=== PATIENT | female | born 1975 | race Caucasian/White ===

== ENCOUNTER 2016-12-04 21:24 | Emergency (ER) | payer OTHER ==
--- NOTE | 2016-12-04 21:41 | ER Document Report ---
ED Medical Screen (RME) - General Chief Complaint: Low Back Pain Stated Complaint: LEG PAIN Mode of Arrival: Ambulatory Information source: Patient Notes: She presents to the emergency department with complaints of sciatic pain. Reports she's had it for years. Reports she usually takes ibuprofen and Ultram for the pain. She cannot get in to see her primary care provider. She also reports that some increased numbness in her leg. TRAVEL OUTSIDE OF THE [place] IN LAST 30 DAYS: No - Related Data Allergies/Adverse Reactions: Penicillins Allergy (Verified 08/22/15 22:53) Anaphylaxis Past Medical History Endocrine Medical History: Reports: Hx Diabetes Mellitus Type 2 Past Surgical History: Reports: Hx Hysterectomy, Hx Orthopedic Surgery - Carpal tunnel - Immunizations Hx Diphtheria, Pertussis, Tetanus Vaccination: Yes
--- NOTE | 2016-12-04 22:32 | ER Document Report ---
HPI - HPI Patient complains to provider of: sciatica Onset: Last week Onset/Duration: Persistent Quality of pain: Achy Severity: Severe Pain Level: 4 Context: Patient presents to the emergency department with complaints of right-sided low back pain. Reports history of chronic back pain with sciatica. She is currently prescribed Ultram and Motrin for the pain. She reports recently having increased back pain unable to lay on the right side and increased numbness going down her right leg. She denies other symptoms such as fever vomiting diarrhea. She denies urinary or bowel incontinence or retention. She reports last bowel movement was this morning and was normal. She denies trauma. She denies past medical history of IV drug use. She reports recent weight loss approximately 50 pounds. She reports she has changed her diet and is concentrating on losing weight. Patient does have a history of ovarian cancer approximately 10 years ago and had a checkup 2 years ago with no further cancer noted. Associated Symptoms: None Exacerbated by: Supine Relieved by: Denies Similar symptoms previously: Yes Recently seen / treated by doctor: Yes - REPRODUCTIVE LMP: na Reproductive: DENIES: : - DERM Skin Color: Normal <KEY HANSON - Last Filed: 12/04/16 23:23> Past Medical History - General Information source: Patient Last Menstrual Period: hyst - Social History Smoking Status: Current Every Day Smoker Cigarette use (# per day): Yes Chew tobacco use (# tins/day): No Frequency of alcohol use: Rare Drug Abuse: None Occupation: commissary Lives with: Friend Family History: Reviewed & Not Pertinent Patient has suicidal ideation: No Patient has homicidal ideation: No Renal/ Medical History: Denies: Hx Peritoneal Dialysis Malignancy Medical History: Reports: Hx Ovarian Cancer Past Surgical History: Reports: Hx Hysterectomy, Hx Orthopedic Surgery - Carpal tunnel - Immunizations Hx Diphtheria, Pertussis, Tetanus Vaccination: Yes <KEY HANSON - Last Filed: 12/04/16 23:23> Vertical Provider Document - CONSTITUTIONAL Agree With Documented VS: Yes Exam Limitations: No Limitations General Appearance: WD/WN, Mild Distress - winces when right buttocks palpated - INFECTION CONTROL TRAVEL OUTSIDE OF THE [place] IN LAST 30 DAYS: No - HEENT HEENT: Atraumatic, Normocephalic - NECK Neck: Normal Inspection, Supple. negative: Lymphadenopathy-Left, Lymphadenopathy-Right - RESPIRATORY Respiratory: Breath Sounds Normal, No Respiratory Distress O2 Sat by Pulse Oximetry: 100 - CARDIOVASCULAR Cardiovascular: Regular Rate, Regular Rhythm - GI/ABDOMEN Gastrointestinal: Abdomen Soft, Abdomen Non-Tender - BACK Back: Normal Inspection - No obvious deformity no erythema, warmth, swelling. Good distal movement and sensation. Good reflexes. No weakness noted. Patient is tender to palpation on the right paraspinal with pain radiating down her right buttocks and around her right leg. - MUSCULOSKELETAL/EXTREMETIES Musculoskeletal/Extremeties: MOLINA RUSSO - NEURO Level of Consciousness: Awake, Alert, Appropriate Motor/Sensory: No Motor Deficit - DERM Integumentary: Warm, Dry Adult Front & Back Diagram: 1 - reports pain 2 - radiates down the right buttocks to her right leg, wraps around the leg <KEY HANSON - Last Filed: 12/04/16 23:23> Course - Vital Signs Vital signs: Temp Pulse Resp BP Pulse Ox 98.1 F 95 16 151/92 H 100 12/04/16 21:40 12/04/16 21:40 12/04/16 21:40 12/04/16 21:40 12/04/16 23:04 <ELIO JOHNSON - Last Filed: 12/04/16 23:04> - Re-evaluation Re-evalutation: 12/04/16 23:05 She instructed on all medications. Patient reports she has the next 2 days off so she can rest. Patient was also instructed on red flags of back pain. She was instructed to follow up with Dr. Anderson as scheduled December 13. - Vital Signs Vital signs: Temp Pulse Resp BP Pulse Ox 98.1 F 95 16 151/92 H 100 12/04/16 21:40 12/04/16 21:40 12/04/16 21:40 12/04/16 21:40 12/04/16 21:40 <KEY HANSON - Last Filed: 12/04/16 23:23> Discharge <ELIO JOHNSON - Last Filed: 12/04/16 23:04> <KEY HANSON - Last Filed: 12/04/16 23:23> - Discharge Clinical Impression: Elevated blood pressure reading, Chronic back pain Sciatica Qualifiers: Laterality: right Qualified Code(s): M54.31 - Sciatica, right side Condition: Stable Disposition: HOME, SELF-CARE Instructions: Oral Narcotic Medication ([facility]), Steroid Medication, Toradol Injection ([facility]), Sciatica ([facility]) Additional Instructions: *You have been evaluated for back pain, sciatica *Take medication as prescribed *Rest *Follow up with Dr Anderson December 13 as scheduled *Return to ED for worsening condition, changes, needs Prescriptions: Hydrocodone/Acetaminophen [Siren 5-325 mg Tablet] 1 tab PO QID #15 tablet Prednisone [Deltasone 10 mg Tablet] 10 mg PO ASDIR PRN #15 tablet PRN Reason: Forms: Elevated Blood Pressure Referrals: MICHELINE GARSIA MD [Primary Care Provider] - Follow up as needed
[2016-12-04] MEDS ORDERED: KETOROLAC TROMETHAMINE 60 MG/2 ML SDV IM ONE (22:44)
[2016-12-04] MEDS ORDERED: PREDNISONE 20 MG TABLET PO ONE (22:44)
[2016-12-04] MEDS ORDERED: HYDROCODONE/ACETAMINOPHEN 5-325 MG 6 TAB/DSPK PO PRN (22:44)
[2016-12-05] VITALS: BP 146/88
== END 2016-12-04 23:02 | disposition home or self-care (01) ==
LOC: ER 21:24
DX: G89.29 Other chronic pain (principal); M54.41 Lumbago with sciatica, right side; R03.0 Elevated blood-pressure reading, without diagnosis of hypertension; F17.210 Nicotine dependence, cigarettes, uncomplicated; Z79.891 Long term (current) use of opiate analgesic; Z79.1 Long term (current) use of non-steroidal anti-inflammatories (NSAID); Z85.43 Personal history of malignant neoplasm of ovary
CPT/HCPCS: 99283; 96372; J1885; J7512

== ENCOUNTER → 2017-01-16 | Outpatient (CLI) | payer OTHER ==
--- NOTE | 2017-01-16 11:07 | RADIOLOGY REPORT (SQ) ---
EXAM DESCRIPTION: MRI LUMBAR SPINE WITHOUT COMPLETED DATE/TIME: 01/16/2017 10:52 am REASON FOR STUDY: RADICULOPATHY, SITE UNSPECIFIED M54.10 RADICULOPATHY, SITE UNSPECIFIED COMPARISON: None. TECHNIQUE: Sagittal and Axial imaging includes T1, T2, STIR and gradient echo sequences. Coronal T2/ HASTE imaging. LIMITATIONS: None. FINDINGS: VISUALIZED UPPER ABDOMEN: Limited evaluation. No acute or suspicious findings suggested. SEGMENTATION: No transitional anatomy. The lowest well-developed disc space is labeled L5-S1. ALIGNMENT: Anatomic. VERTEBRAE: Intact. BONE MARROW: Normal. No marrow replacement or reactive changes. DISC SIGNAL: Normal. No significant abnormal signal or loss of height. POSTERIOR ELEMENTS: Generally intact. No pars defect evident. HARDWARE: None in the spine. CORD AND CONUS: Normal in size and signal intensity. Conus at the appropriate level. SOFT TISSUES: No aortic aneurysm seen. No bulky retroperitoneal adenopathy or mass. No paraspinal mas s or fluid. L1-L2: No significant disc bulge. Mild facet arthropathy. No significant spinal stenosis or exit fo raminal stenosis. L2-L3: No significant disc bulge. Mild -moderate facet arthropathy. No significant spinal stenosis or exit foraminal stenosis. L3-L4: No significant disc bulge. Mild -moderate facet arthropathy. No significant spinal stenosis or exit foraminal stenosis. L4-L5: Central disc protrusion, asymmetric to the right side, with right lateral recess stenosis and impingement of the associated nerve roots. Moderate facet arthropathy. No significant exit foramina l stenosis. L5-S1: No significant disc bulge. Mild facet arthropathy. No significant spinal stenosis or exit fo raminal stenosis. LOWER THORACIC: Incompletely imaged. No stenosis seen. SACRUM: Visualized upper sacrum intact. OTHER: No other significant findings. IMPRESSION: 1. CENTRAL DISC PROTRUSION AT L4-L5 WHICH RESULTS IN RIGHT LATERAL RECESS STENOSIS AND IMPINGEMENT OF THE ASSOCIATED NERVE ROOTS. 2. FACET ARTHROPATHY IN THE REMAINDER OF THE LUMBAR SPINE WITH NO SIGNIFICANT DISC DISEASE. NO STENO SIS OR IMPINGEMENT ELSEWHERE. TECHNICAL DOCUMENTATION: JOB ID: [id number] Dr[address] Tariff- All Rights Reserved
== END ==
LOC: RAD 09:32
PROVIDERS: ATTEND Family Medicine
DX: M54.16 Radiculopathy, lumbar region (principal)
CPT/HCPCS: 72148

== ENCOUNTER 2017-01-28 23:53 | Emergency (ER) | payer OTHER ==
--- NOTE | 2017-01-29 04:20 | ER Document Report ---
HPI - HPI Patient complains to provider of: worse sciatica on the right Onset: Other - months Onset/Duration: Persistent, Worse Pain Level: 5 Context: -year-old female complaining of right low back pain which radiates into her right posterior leg. She was diagnosed with an L4-L5 herniated disc and sciatica is being treated by the her doctor. no saddle anesthesia. No fever or chills. No IV drug use.. After lifting at work. She has 2 jobs that require lifting. Associated Symptoms: None Exacerbated by: Sitting - REPRODUCTIVE LMP: hysterectomy Reproductive: DENIES: : - DERM Skin Color: Normal Past Medical History - General Information source: Patient - Social History Smoking Status: Unknown if Ever Smoked Frequency of alcohol use: None Drug Abuse: None Family History: Reviewed & Not Pertinent Endocrine Medical History: Reports: Hx Diabetes Mellitus Type 2 Renal/ Medical History: Denies: Hx Peritoneal Dialysis Malignancy Medical History: Reports: Hx Ovarian Cancer GI Medical History: Reports: Hx Gastroesophageal Reflux Disease Musculoskeltal Medical History: Reports Other - Herniated L4-L5 disc and sciatica on the right Past Surgical History: Reports: Hx Hysterectomy, Hx Orthopedic Surgery - Carpal tunnel - Immunizations Hx Diphtheria, Pertussis, Tetanus Vaccination: Yes Vertical Provider Document - CONSTITUTIONAL Agree With Documented VS: Yes Exam Limitations: No Limitations General Appearance: No Apparent Distress Notes: Moves easily to a seated and standing and walking position - INFECTION CONTROL TRAVEL OUTSIDE OF THE [place] IN LAST 30 DAYS: No - HEENT HEENT: Normocephalic - NECK Neck: Supple - RESPIRATORY Respiratory: Breath Sounds Normal, No Respiratory Distress O2 Sat by Pulse Oximetry: 100 - CARDIOVASCULAR Cardiovascular: Regular Rate, Regular Rhythm - GI/ABDOMEN Gastrointestinal: Abdomen Soft, Abdomen Non-Tender - BACK Back: Normal Inspection - tender right SI joint area into right mid buttocks - MUSCULOSKELETAL/EXTREMETIES Musculoskeletal/Extremeties: MAEW, FROM - NEURO Level of Consciousness: Awake, Alert Motor/Sensory: No Motor Deficit, No Sensory Deficit Deep Tendon Reflexes: 2+ - Bilateral ankle and patellar - DERM Integumentary: Warm, Dry, No Rash Course - Vital Signs Vital signs: Temp Pulse Resp BP Pulse Ox 97.6 F 69 20 148/89 H 100 01/29/17 00:46 01/29/17 00:46 01/29/17 00:46 01/29/17 00:46 01/29/17 00:46 Discharge - Discharge Clinical Impression: exacerbation right sciatica Condition: Good Disposition: HOME, SELF-CARE Instructions: Low Back Pain ([facility]), Sciatica ([facility]), Oral Narcotic Medication ( [facility]) Additional Instructions: see your doctor on monday do NOT mix the tramadol and the hydrocodone after the hydrocodone dispense #6 is gone tomorrow you can restart the tramadol to er if worse Forms: Return to Work Referrals: MICHELINE GARSIA MD [Primary Care Provider] - Follow up as needed
[2017-01-29] MEDS ORDERED: HYDROCODONE/ACETAMINOPHEN 5-325 MG 6 TAB/DSPK PO PRN (04:28)
[2017-01-29 04:37] VITALS: BP 132/78
== END 2017-01-29 04:36 | disposition home or self-care (01) ==
LOC: ER 23:53
DX: M54.5 Low back pain (principal); M79.604 Pain in right leg; M54.31 Sciatica, right side
CPT/HCPCS: 99283

== ENCOUNTER 2017-04-27 01:03 | Emergency (ER) | payer OTHER ==
[2017-04-27] MEDS ORDERED: NAPROXEN 250 MG TABLET PO ONE (02:18)
[2017-04-27] MEDS ORDERED: LIDOCAINE 5% (700 MG) TRANSDERMAL ADH..PATCH TP ONE (02:19)
--- NOTE | 2017-04-27 02:21 | ER Document Report ---
ED General - General Chief Complaint: Low Back Pain Stated Complaint: BACK PAIN Time Seen by Provider: 04/27/17 02:18 Notes: Patient is a 42-year-old female with a past medical history of chronic low back pain who presents with 3 days of acute worsening of that pain. Describes it as a severe, constant, aching pain to the low back with radiation into the right lower extremity. Walking or moving worsens the pain. She has been taking tramadol and Flexeril with moderate improvement of her pain. She does follow in pain management for this chronic pain. She denies any bowel or bladder incontinence, urinary retention, weakness or focal numbness. She continues to be able to ambulate. TRAVEL OUTSIDE OF THE [place] IN LAST 30 DAYS: No - Related Data Allergies/Adverse Reactions: meloxicam [From Mobic] Allergy (Verified 12/04/16 21:42) Penicillins Allergy (Verified 08/22/15 22:53) Anaphylaxis pregabalin [From Lyrica] Adverse Reaction (Verified 01/29/17 00:46) Past Medical History - General Information source: Patient - Social History Smoking Status: Never Smoker Frequency of alcohol use: None Drug Abuse: None Lives with: Family Family History: Reviewed & Not Pertinent Patient has suicidal ideation: No Patient has homicidal ideation: No Endocrine Medical History: Reports: Hx Diabetes Mellitus Type 2 Renal/ Medical History: Denies: Hx Peritoneal Dialysis Malignancy Medical History: Reports: Hx Ovarian Cancer GI Medical History: Reports: Hx Gastroesophageal Reflux Disease Past Surgical History: Reports: Hx Hysterectomy, Hx Orthopedic Surgery - Carpal tunnel - Immunizations Hx Diphtheria, Pertussis, Tetanus Vaccination: Yes Review of Systems - Review of Systems Notes: Constitutional: Negative for fever. HENT: Negative for sore throat. Eyes: Negative for visual changes. Cardiovascular: Negative for chest pain. Respiratory: Negative for shortness of breath. Gastrointestinal: Negative for abdominal pain, vomiting or diarrhea. Genitourinary: Negative for dysuria. Musculoskeletal: Positive for back pain. Skin: Negative for rash. Neurological: Negative for headaches, weakness or numbness. 10 point ROS negative except as marked above and in HPI. Physical Exam - Vital signs Vitals: Temp Pulse Resp BP Pulse Ox 97.7 F 94 18 144/91 H 98 04/27/17 01:07 04/27/17 01:07 04/27/17 01:07 04/27/17 01:07 04/27/17 01:07 Interpretation: Hypertensive Notes: PHYSICAL EXAMINATION: GENERAL: Well-appearing, well-nourished and in no acute distress. HEAD: Atraumatic, normocephalic. EYES: Pupils equal round and reactive to light, extraocular movements intact, sclera anicteric, conjunctiva are normal. ENT: nares patent, oropharynx clear without exudates. Moist mucous membranes. NECK: Normal range of motion, supple without lymphadenopathy LUNGS: Breath sounds clear to auscultation bilaterally and equal. No wheezes rales or rhonchi. HEART: Regular rate and rhythm without murmurs ABDOMEN: Soft, nontender, normoactive bowel sounds. No guarding, no rebound. No masses appreciated. EXTREMITIES: Normal range of motion, no pitting or edema. No cyanosis. Back: No midline spinal tenderness, step-offs or deformities. NEUROLOGICAL: 5 out of 5 strength both distally and proximally bilateral lower extremities. 2+ patellar reflexes bilaterally. No clonus. Sensation grossly intact in the bilateral lower extremities. Patient is able to ambulate without difficulty. PSYCH: Normal mood, normal affect. SKIN: Warm, Dry, normal turgor, no rashes or lesions noted. Course - Re-evaluation Re-evalutation: 04/27/17 02:19 Presentation of a well appearing patient complaining of acute on chronic back pain. No rapid progression of symptoms, systemic symptoms including fevers, chills, weight loss, history of recent bacterial infection, bilateral symptoms, numbness, weakness, difficulty walking, urinary retention or bowel incontinence , personal history of cancer, immunosuppression, diabetes, known AAA, or history of IV drug use. Exam is without point tenderness over vertebral bodies , pulsatile abdominal mass, and patient has symmetric and intact lower extremity strength, sensation, and reflexes without clonus. 2+ symmetric medial malleolar and dorsalis pedis pulses Based on history and physical, I have a very low suspicion of a concerning etiology of pain including epidural compression syndrome, spinal infection, transverse myelitis, malignancy, abdominal aortic aneurysm, renal colic, acute lower extremity claudication, neurogenic claudication, ankylosing spondylitis, or other intra-abdominal process. Due to absence of concerning risk factors in history and physical as well as absence of rapidly progressive, severe, or bilateral symptoms, will defer imaging at this point. Plan to manage conservatively with outpatient analgesia, analgesia, and physical therapy. - Acetaminophen 650 q 4 + ibuprofen 600 q 6 - Continue normal daily activities as tolerated by pain - Provide with standard musculoskeletal back pain exercise instructions - Instruct to follow up with primary care provider if symptoms not improving - Provide careful return precautions and concerning symptoms to watch for. - Vital Signs Vital signs: Temp Pulse Resp BP Pulse Ox 97.7 F 94 18 144/91 H 98 04/27/17 01:07 04/27/17 01:04/27/17 01:07 04/27/17 01:07 04/27/17 01:07 Discharge - Discharge Clinical Impression: Low back pain Qualifiers: Chronicity: acute Back pain laterality: right Sciatica presence: with sciatica Sciatica laterality: sciatica of right side Qualified Code(s): M54.41 - Lumbago with sciatica, right side Condition: Good Disposition: HOME, SELF-CARE Additional Instructions: You have been seen in the Emergency Department (ED) today for back pain. Your workup and exam have not shown any acute abnormalities and you are likely suffering from muscle strain or possible problems with your discs, but there is no treatment that will fix your symptoms at this time. Please take the naproxen that has been prescribed as directed. You should also purchase a local lidocaine cream such as "aspercreme with lidocaine" and use per bottle instructions to the affected area. Apply heat to the area as often as you are able. Continue to keep active and avoid prolonged periods of bed rest. Please follow up with your doctor as soon as possible regarding today's ED visit and your back pain. Return to the ED for worsening back pain, fever, weakness or numbness of either leg, or if you develop either (1) an inability to urinate or have bowel movements, or (2) loss of your ability to control your bathroom functions (if you start having "accidents"), or if you develop other new symptoms that concern you.concern you. Prescriptions: Naproxen 500 mg PO BID #60 tablet
[2017-04-27 02:52] VITALS: BP 131/72
== END 2017-04-27 02:52 | disposition home or self-care (01) ==
LOC: ER 01:03
DX: M54.41 Lumbago with sciatica, right side (principal); M54.5 Low back pain; G89.29 Other chronic pain; Z79.899 Other long term (current) drug therapy
CPT/HCPCS: 99283